=== PATIENT | female | born 1940 | race Caucasian/White ===

== ENCOUNTER 2018-02-05 20:39 | Emergency (ER) | payer SELFPAY ==
[~2018-02-05] VITALS: Ht 154.9 cm; Wt 66.8 kg
[2018-02-05 20:40] VITALS: BP 150/77
--- NOTE | 2018-02-05 20:50 | NUR ---
PATIENT TRIAGED, VSS. SENT TO ER [facility]. Addendum: 02/05/18 at 2329 by [facility] PT AMBULATED TO BED 4. ACCOMPANIED BY DAUGHTER WHO IS TRANSLATING FOR PT. PT PRESENTS TO ED WITH FREQUENT AND BURNING URINATION X3 DAYS. VSS. PT AFEBRILE. A&OX4. POSITIONED IN BED FOR COMFORT. ER AWARE. CONTINUE TO MONITOR.
--- NOTE | 2018-02-05 20:51 | NUR ---
PT PRESENTS TO ED WITH CRAWFORD X2 DAYS. PT STAETS NAUSEA WITHOUT VOMITING. PT DENIES DIZZINESS OR BLURRED/LOSS OF VISION. A&OX4. POSITIONED IN BED WITH VSS. FAMILY AT BEDSIDE. ER MD AWARE. CONTINUE TO MONITOR.
--- NOTE | 2018-02-05 20:51 | NUR ---
PATIENT UNABLE TO PROVIDE URINE AT THIS TIME; PT GIVEN CUP; WATER GIVEN.
[2018-02-05 22:43] LABS: APPEARANCE,URINE HAZY (CLEAR); BILIRUBIN,URINE NEGATIVE (NEGATIVE); BLOOD, URINE NEGATIVE (NEGATIVE); COLOR,URINE YELLOW (YELLOW); LEUKOCYTE ESTERASE ,URINE 1+ (NEGATIVE); NITRITE, URINE NEGATIVE (NEGATIVE); PH,URINE 6.5 (5.0-9.0); UGLUCOSE NEGATIVE (NEGATIVE)
[2018-02-05 23:06] LABS: RBC,URINE 0-5 (RARE) /HPF (0-5)
[2018-02-05] MEDS ORDERED: cefTRIAXone 1,000 MG in LIDOCAINE MPF 1% - 5 mL VIAL 2.1 ML IM ONE (23:35)
[2018-02-05] MEDS ORDERED: PHENAZOPYRIDINE 100 MG TAB PO ONE (23:35)
[2018-02-05 23:59] VITALS: BP 125/85
--- NOTE | 2018-02-06 | NUR ---
Patient discharged with v/s stable. Written and verbal after care instructions given and explained. Patient alert, oriented and verbalized understanding of instructions. Ambulatory with steady gait. All questions addressed prior to discharge. ID band removed. Patient advised to follow up with PMD. Rx of KEFLEX AND PYRIDIUM given. Patient educated on indication of medication including possible reaction and side effects. Opportunity to ask questions provided and answered.
== END 2018-02-06 | disposition home or self-care (01) ==
LOC: MED 20:39
DX: N39.0 Urinary tract infection, site not specified (principal); E11.9 Type 2 diabetes mellitus without complications
CPT/HCPCS: 81001; 87086; 96372; 99284; J0696; J2001